=== PATIENT | female | born 1985 | race Caucasian/White ===

== ENCOUNTER 2019-06-03 17:12 | Emergency (ER) | payer SELFPAY ==
[~2019-06-03] VITALS: Ht 162.6 cm; Wt 71.0 kg
[2019-06-03 17:15] VITALS: BP 114/83
--- NOTE | 2019-06-03 17:26 | NUR ---
Recieved report from DYLLAN Felipe. All questions answered. Pt resting on gurney connected to monitors. Bedrails up x 2 and call light within reach. RPD at bedside. NADN. No needs expressed.
[2019-06-03] MEDS ORDERED: ACETAMINOPHEN 325 MG TABLET ONE (17:53)
[2019-06-03] MEDS ORDERED: ACETAMINOPHEN 325 MG TABLET PO ONE (18:00)
== END 2019-06-03 17:57 | disposition home or self-care (01) ==
LOC: ED 17:51
DX: S09.90XA Unspecified injury of head, initial encounter (principal); F17.200 Nicotine dependence, unspecified, uncomplicated; V47.5XXA Car driver injured in collision with fixed or stationary object in traffic accident, initial encounter; Y93.89 Activity, other specified; Y92.410 Unspecified street and highway as the place of occurrence of the external cause; Y99.8 Other external cause status
CPT/HCPCS: 99283